=== PATIENT | male | born 1935 | race American Indian/Alaskan Native ===

== ENCOUNTER 2020-08-11 06:53 | Day surgery (SDC) | payer MEDICARE, OTHER ==
[~2020-08-11] VITALS: Ht 172.7 cm; Wt 98.0 kg
[~2020-08-11 06:53] MED LIST: (None)50 MG; ASCO500 PO; ASPI81CH PO; ASPI81EC; ATEN100; ATOR40TA PO; CLOP75 PO; Cialis20 MG PO; Cosopt Plus10 ML BOTHEYES; EYE GTTS; JOINT SUPPORT1 EACH PO; LOSA50 PO; LOSARTAN-HCTZ1 EACH PO; METO25ER PO; NITR.4SL SL; OMEGA-3100 MG PO; PAIN & FEVER325 MG PO; PROSTEON TABLE1 EACH PO; SUPER OMEGA PO; Saw Palmetto160 MG PO; Simvastatin20 MG PO; Super B Comple1 EAC2 PO; TAMS.4ER PO; TRAZ50 PO; [UNRECOGNIZED DRUG - OTHER]
[2020-08-11 15:02] LABS: Alanine Aminotransfer (ALT/SGP 101 U/L (12-78); Albumin, Blood 3.4 g/dL (3.4-5.0); Alk Phos 68 U/L (50-136); Anion Gap 5 mmol/L (6-16); Aspartate Aminotrans (AST/SGOT 100 U/L (12-37); Bilirubin, Total 0.4 mg/dL (0.1-1.0); Blood Urea Nitrogen 20 mg/dL (8-24); Bun/Creatinine Ratio 18.9 (12.0-20.0); CO2, Blood 26 mmol/L (21-32); Calcium, Blood 8.2 mg/dL (8.5-10.1); Chloride, Blood 110 mmol/L (98-108); Creatinine, Blood 1.06 mg/dL (0.60-1.20); Globulin, Blood 3.5 g/dL (2.2-4.0); Glomerular Filtration Rate >60 (60-); Glucose, Blood 175 mg/dL (70-99); Potassium, Blood 3.9 mmol/L (3.5-5.5); Sodium, Blood 141 mmol/L (136-145); Total Protein, Blood 6.9 g/dL (6.4-8.2)
[2020-08-11] MEDS ORDERED: HYDR1TAB94 PO (16:20)
--- NOTE | 2020-08-11 16:36 | NUR ---
PT ARRIVED TO UNIT FROM PACU SHORTLY AFTER 1400. TRANSFERRED PT FROM [facility] TO BED. LAP INCISIONS TO ABD CDI. PT WENT TO MRI, RESULTS NORMAL. PT MEDICATED ONCE FOR ABD PAIN. NOW RESTING W/EYES CLOSED. CALL LIGHT IN REACH.
--- NOTE | 2020-08-11 17:17 | NUR ---
TURNING OVER CARE TO JUANITO Anthony RN.
--- NOTE | 2020-08-11 18:05 | NUR ---
TOLERATING CLEAR LIQUIDS WELL, DENIES ANY PAIN, PT WAITING FOR RIDE HOME, PT'S GRAND DAUGHTER LUBA CONTACTED.
== END 2020-08-11 18:35 | disposition home or self-care (01) ==
LOC: ORSCMMR 06:53 → SURS 13:30 → ORSCMMR 18:35
PROVIDERS: Surgery
PROC: BF031ZZ Plain Radiography of Gallbladder and Bile Ducts using Low Osmolar Contrast (ICD-10-PCS; principal; 2020-08-11 08:30)
PROC: 0FT44ZZ Resection of Gallbladder, Percutaneous Endoscopic Approach (ICD-10-PCS; principal; 2020-08-11 08:30)
DX: K80.10 Calculus of gallbladder with chronic cholecystitis without obstruction (principal); I10 Essential (primary) hypertension; I25.10 Atherosclerotic heart disease of native coronary artery without angina pectoris; Z87.891 Personal history of nicotine dependence; I25.2 Old myocardial infarction; Z86.73 Personal history of transient ischemic attack (TIA), and cerebral infarction without residual deficits; Z79.02 Long term (current) use of antithrombotics/antiplatelets; Z79.899 Other long term (current) drug therapy
CPT/HCPCS: 36415; 74181; 74300; 80053; 88304; A9270; C1729; J0690; J1100; J1610; J2405; J2704; J3010; J7120

== ENCOUNTER 2022-01-06 07:04 | Inpatient (IN) | payer MEDICARE, OTHER ==
[~2022-01-06] VITALS: Ht 172.7 cm; Wt 81.1 kg
[~2022-01-06 07:04] MED LIST changes: +HYDR1TAB94 PO
[2022-01-06] MEDS ORDERED: Aspir 8181 MG PO (07:34)
[2022-01-06 09:56] LABS: BASOPHILS ABSOLUTE AUTO 0.05 K/mm3 (0.00-0.23); BASOPHILS PERCENT AUTO 1 % (0-2); EOSINOPHILS PERCENT AUTO 5 % (0-6); Hematocrit 40.3 % (37.0-53.0); Hemoglobin 12.9 g/dL (13.5-17.5); IMMATURE GRAN ABSOLUTE AUTO 0.07 K/mm3 (0.00-0.10); IMMATURE GRAN PERCENT AUTO 1 % (0-1); LYMPHOCYTES ABSOLUTE AUTO 1.24 K/mm3 (0.84-5.20); LYMPHOCYTES PERCENT AUTO 14 % (21-46); MONOCYTES ABSOLUTE AUTO 0.52 K/mm3 (0.16-1.47); MONOCYTES PERCENT AUTO 6 % (4-13); Mean Corpuscular HGB 28.5 pg (26.0-34.0); Mean Corpuscular Volume 89 fL (80-100); Mean Platelet Volume 9.4 fL (9.1-12.4); NEUTROPHILS ABSOLUTE AUTO 6.48 K/mm3 (1.96-9.15); NEUTROPHILS PERCENT AUTO 74 % (41-73); Platelet Count 260 K/mm3 (150-400); RDW Coefficient Variation 14.2 % (11.7-14.2); RDW Standard Deviation 45.9 fL (35.1-46.3); Red Blood Cell Count 4.52 M/mm3 (4.30-5.90); White Blood Cell Count 8.76 K/mm3 (4.00-11.30)
[2022-01-06 10:13] LABS: Albumin, Blood 3.5 g/dL (3.4-5.0); Albumin/Globulin Ratio 0.8 (0.8-1.8); Bilirubin, Total 0.4 mg/dL (0.1-1.0); Bun/Creatinine Ratio 16.5 (12.0-20.0); Calcium, Blood 9.4 mg/dL (8.5-10.1); Creatinine, Blood 1.33 mg/dL (0.60-1.20); Globulin, Blood 4.2 g/dL (2.2-4.0); Potassium, Blood 4.5 mmol/L (3.5-5.5); Total Protein, Blood 7.7 g/dL (6.4-8.2)
[2022-01-06] MEDS ORDERED: DONEPEZIL HCL10 M1 PO (10:56)
[2022-01-06] MEDS ORDERED: AMLODIPINE BESYL5 MG PO (10:56)
[2022-01-06 10:57] LABS: International Normalized Ratio 1.05
[2022-01-06] MEDS ORDERED: POTA10T PO (10:57)
[2022-01-06] MEDS ORDERED: ATOR80 PO (10:57)
--- NOTE | 2022-01-06 11:05 | NUR ---
ADMISSION TO ICU PT ARRIVES TO ICU FROM ER AT 1001 FOR SAH. PT ALERT, ORIENTED TO SELF ONLY, KNOWS BIRTHDAY, UNSURE OF WHERE HE IS AT OR EVENTS. PLEASENT, COOPERATIVE c CARE. FOLLOWS DIRECTIONS. CLEAR SPEECH. PLAN FOR q2 HR NEURO CHECKS AND REPEAT CT AT 1400. MAEW. PRESTON. LUNGS DIM. SR c PVCS ON MONITOR, RATE 90S'S. BP STABLE. 1+ EDEMA TO BLE. BOTH DAUGHTERS UPDATED. SPOKE c JAIRO, STATES PT HAS LIVING WILL. DNR, DOES NOT WANT PT INTUBATED THERE IS NO TREATMENT IF SAH PROGRESSES. WILL CONTINUE TO MONITOR.
--- NOTE | 2022-01-06 17:38 | NUR ---
SHIFT SUMMARY NO ACUTE CHANGES THIS SHIFT. NEURO CHECKS REMAIN UNCHANGED. REPEAT CT SHOWED SLIGHT INCREASE IN BLEED. BENIGNO CONSULTED. WILL CONTINUE TO MONITOR HERE. q4 NEURO CHECKS. STATUS CHANGED TO PCU. VSS. WILL CONTINUE TO MONITOR UNTIL REPORT TO ONCOMING NURSE.
[2022-01-07 03:49] LABS: Hematocrit 34.9 % (37.0-53.0); Hemoglobin 11.5 g/dL (13.5-17.5)
[2022-01-07 04:16] LABS: Calcium, Blood 8.9 mg/dL (8.5-10.1); Creatinine, Blood 1.24 mg/dL (0.60-1.20); Potassium, Blood 4.3 mmol/L (3.5-5.5)
--- NOTE | 2022-01-07 05:08 | NUR ---
PT WITHOUT ANY SIGNIFICANT EVENTS OVERNIGHT. PT PLEASANTLY CONFUSED. INTERMITTENTLY TRYING TO GET OUT OF BED DUE TO PT NEEDING TO VOID. UNABLE TO USE CALL LIGHT DUE TO CONFUSION. FOLLOWS DIRECTIONS AND COOPERATIVE. VSS. PT SLEEPING WELL TONIGHT. WAS INCONTINENT DUE TO GOOD SLEEP, PT CLEANED UP AND SKIN INTACT.
--- NOTE | 2022-01-07 18:14 | NUR ---
SHIFT SUMMARY NO ACUTE CHANGES. PT READY FOR D/C BUT WILL BE D/C'D TOMORROW D/T SWAN POLICY. A&OX1. FOLLOWS COMMANDS. WORKED c PT THIS SHIFT, UP TO CHAIR. ONE PERSON ASSIST TO USE URINAL. POOR APPETITE. VSS. WILL CONTINUE TO MONITOR UNTIL REPORT TO ONCOMING NURSE.
--- NOTE | 2022-01-08 01:56 | NUR ---
THIS AUTHOR ASSUMED CARE AT ABOUT MIDNIGHT. PATIENT IS PLEASANT, ORIENTED TO SELF AND PLACE, VERY [place], AFEBRILE. ON , VSS. ANTICIPATE DISCHARGE SATURDAY. AT THE TIME OF THIS NOTE, PATIENT REQUESTED HIS HEARING AIDS AND THEY ARE IN PLACE CURRENTLY. DENIES NEEDS FOR BATHROOM AT THIS POINT. CALL LIGHT WITHIN REACH, TV TURNED ON PER REQUEST, AND PATIENT IS RELAXING AND INTERMITTENTLY SLEEPING IN BED.
[2022-01-08 04:11] LABS: BASOPHILS ABSOLUTE AUTO 0.06 K/mm3 (0.00-0.23); BASOPHILS PERCENT AUTO 1 % (0-2); EOSINOPHILS ABSOLUTE AUTO 0.37 K/mm3 (0.00-0.68); EOSINOPHILS PERCENT AUTO 5 % (0-6); Hematocrit 35.8 % (37.0-53.0); Hemoglobin 11.8 g/dL (13.5-17.5); IMMATURE GRAN ABSOLUTE AUTO 0.04 K/mm3 (0.00-0.10); IMMATURE GRAN PERCENT AUTO 1 % (0-1); LYMPHOCYTES ABSOLUTE AUTO 1.81 K/mm3 (0.84-5.20); LYMPHOCYTES PERCENT AUTO 25 % (21-46); MONOCYTES ABSOLUTE AUTO 0.63 K/mm3 (0.16-1.47); MONOCYTES PERCENT AUTO 9 % (4-13); Mean Corpuscular HGB 28.3 pg (26.0-34.0); Mean Corpuscular Volume 86 fL (80-100); Mean Platelet Volume 9.2 fL (9.1-12.4); NEUTROPHILS ABSOLUTE AUTO 4.47 K/mm3 (1.96-9.15); NEUTROPHILS PERCENT AUTO 61 % (41-73); Platelet Count 233 K/mm3 (150-400); RDW Standard Deviation 43.9 fL (35.1-46.3); Red Blood Cell Count 4.17 M/mm3 (4.30-5.90); White Blood Cell Count 7.38 K/mm3 (4.00-11.30)
[2022-01-08 04:32] LABS: Bun/Creatinine Ratio 26.8 (12.0-20.0); Calcium, Blood 8.9 mg/dL (8.5-10.1); Creatinine, Blood 1.12 mg/dL (0.60-1.20)
--- NOTE | 2022-01-08 06:02 | NUR ---
SHIFT SUMMARY: NO ACUTE EVENTS. PATIENT REMAINED IN BED FOR THIS SHIFT. INCONTINENT OF URINE X1. VERY [place], AFEBRILE AND PLEASANT. ORIENTED TO SELF AND PLACE. CARDIAC WDL. ON ROOM AIR. NO BM THIS SHIFT. NO NEW SKIN CONCERNS NOTED. VSS. WILL CONTINUE TO MONITOR UNTIL HANDOFF WITH DAY SHIFT. PLAN FOR DC TODAY BACK TO [place]. NEED TO CHECK WITH FACILITY WHETHER PT HAS RECEIVED HIS FLU SHOT PRIOR TO DISCHARGE.
--- NOTE | 2022-01-08 07:00 | NUR ---
ASSUMPTION OF CARE PT IS AWAKE, MAKES EYE CONTACT AND TRACKS MOVEMENTS. HE PARTICIPATES IN CONVERSATION. PT ALERT TO SELF. CLEAN BRIEF IN PLACE. VSS AT THIS TIME. SEE SHIFT ASSESSMENT.
--- NOTE | 2022-01-08 11:03 | NUR ---
UPDATE PT SAT UP IN CHAIR AT BEDSIDE FOR BREAKFAST. HE IS NOW RESTING IN BED. PT IS ALERT TO SELF AND KNOWS HE IS AT THE HOSPITAL. VERY PLEASANT AND COOPERATIVE. PT DENIES HEADACHE. [place] REMAIN IN PLACE, NO ACTIVE BLEEDING AND SITE PROGRAM ASSISTANT. SMALL AMOUNT OF SWELLING, NONTENDER AROUND SITE. PT IS A ONE PERSON ASSIST WHEN TRANSFERRING. LUNGS ARE CLEAR THROUGHOUT, >95% ON RA. ABDOMEN SOFT, NONTENDER, BOWEL TONES ACTIVE. PT REPORTS FEELING "NOT VERY HUNGRY" AND ATE ABOUT 25% OF BREAKFAST. PT HAD INCONTINENT EPISODE AT BEGINNING OF SHIFT, BUT USED URINAL LATER AND VOIDED 100ML. VSS. DR CASTREJON AND DR ESPAÑA ROUNDED THIS AM. PLAN TO DISCHARGE PT TO [facility]. DISCUSSED PLAN WITH TASHA AT [facility] AND UPDATED DAUGHTER SHIELA. BED IN LOWEST POSITION, CALL LIGHT WITHIN REACH, AWAITING TRANSPORTATION.
--- NOTE | 2022-01-08 11:24 | NUR ---
DISCHARGE [facility] WHEELCHAIR TRANSPORT ARRIVED AT THIS TIME. 1 PERSON ASSIST INTO WHEELCHAIR. BELONGINGS (SHIRT, DENTURES AND HEARING AIDS) AND DISCHARGE PAPERWORK SENT WITH PT AND CUTTER FINISHER.
== END 2022-01-08 11:25 | DRG 84 ==
LOC: ER 07:04 → ICUW 09:14 → ICUE 10:00
PROVIDERS: Emergency Medicine; Family Medicine; ADMIT Hospitalist
PROC: 0HQ0XZZ Repair Scalp Skin, External Approach (ICD-10-PCS; principal; 2022-01-06)
DX: S06.6XAA Traumatic subarachnoid hemorrhage with loss of consciousness status unknown, initial encounter (principal); W18.30XA Fall on same level, unspecified, initial encounter; Z66 Do not resuscitate; I25.10 Atherosclerotic heart disease of native coronary artery without angina pectoris; I10 Essential (primary) hypertension; G30.9 Alzheimer's disease, unspecified; F02.80 Dementia in other diseases classified elsewhere, unspecified severity, without behavioral disturbance, psychotic disturbance, mood disturbance, and anxiety; Z88.2 Allergy status to sulfonamides; Z88.8 Allergy status to other drugs, medicaments and biological substances; Z95.1 Presence of aortocoronary bypass graft; Z85.46 Personal history of malignant neoplasm of prostate; Z90.79 Acquired absence of other genital organ(s); Z87.891 Personal history of nicotine dependence; Z79.82 Long term (current) use of aspirin; Z79.899 Other long term (current) drug therapy; Z79.02 Long term (current) use of antithrombotics/antiplatelets; Z90.49 Acquired absence of other specified parts of digestive tract; Z98.890 Other specified postprocedural states; S01.01XA Laceration without foreign body of scalp, initial encounter
CPT/HCPCS: 36415; 70450; 80048; 80053; 85014; 85018; 85025; 85610; 93005; 93010; 97110; 97161; A9270